=== PATIENT | male | born 1975 | race Caucasian/White ===

== ENCOUNTER 2016-07-31 11:47 | Emergency (ER) ==
[2016-07-31 13:14] LABS: URINE CULTURE NEEDED? NO; URINE MICRO REVIEW NEEDED? NO; URINE SOURCE CLEAN CATCH
[2016-07-31 13:20] LABS: BILIRUBIN URINE NEGATIVE (NEGATIVE); BLOOD URINE NEGATIVE (NEGATIVE); COLOR YELLOW; GLUCOSE URINE >1000 mg/dL (NEGATIVE); LEUKOCYTES URINE NEGATIVE (NEGATIVE); NITRITE URINE NEGATIVE (NEGATIVE); PROTEIN URINE NEGATIVE (NEGATIVE); TURBIDITY URINE CLEAR (CLEAR); UROBILINOGEN URINE NORMAL (NORMAL)
[2016-07-31] MEDS ORDERED: TORADOL IM ONE (13:32)
[2016-07-31] MEDS ORDERED: NORFLEX IM ONE (13:33)
--- NOTE | 2016-07-31 13:38 | PROVIDER DOCUMENTATION ---
HPI-Abdominal Pain/GI Problem - General Source: patient - History of Present Illness-ABD Nature of Presenting Problems: patient is a 41 y/o M that presents to the ER with right flank pain that began 4 days ago abruptly. Pain is sharp in nature. denies injury. Denies hematuria or dysuria. Denies n/v/d. Pain worse with coughing, movement, touch, and breathing ( deep) Abdominal Pain Onset Location: reports: flank (right/right rib) Pain Radiation: reports: no radiation Quality of Pain: reports: sharp Severity in ED: reports: mild, moderate Onset/Duration: reports: abrupt, 4 days ago Timing: reports: still present, constant Activities at Onset: reports: none Modifying Factors: worse with: coughing, lying down, movement Associated Symptoms: reports: back/neck pain. denies: chest pain, diarrhea, dizziness, EENT symptoms, fever/chills, genitourinary problems, nausea, shortness of breath, vomiting Similar Symptoms Previously?: No Recently seen or treated by another doctor?: No <Jh Pizarro - Last Filed: 07/31/16 15:04> <Sergio Valenzuela I - Last Filed: 07/31/16 15:09> - General Chief Complaint: Abdominal Pain Stated Complaint: RIGHT SIDE PAIN Time Seen by Provider: 07/31/16 13:16 Allergies/Adverse Reactions: Patient Allergies Allergy/AdvReac Type Severity Reaction Status Date / Time No Known Allergies Allergy Verified 07/31/16 13:12 Home Medications: Home Medication List Medication Instructions Recorded Confirmed Last Taken Type LISINOpril/HCTZ [Prinzide 1 tab PO QAM 11/04/12 04/05/16 07/30/16 06:00 History 20/12.5MG] 1 tablet Cyclobenzaprine [Flexeril] 10 mg PO TID #20 tablet 07/31/16 Unknown Rx Naproxen Sodium [Anaprox Ds] 550 mg PO BID #20 tablet 07/31/16 Unknown Rx Review of Systems - Adult - REVIEW OF SYSTEMS - ADULT Constitutional: denies: chills, fever Eyes: reports: no symptoms reported Ears, Nose, Mouth & Throat: reports: no symptoms reported Cardiovascular: denies: chest pain, palpitations, syncope Respiratory: reports: pleurisy. denies: cough, shortness of breath Gastrointestinal: reports: abdominal pain. denies: diarrhea, nausea, vomiting Genitourinary: reports: flank pain (right). denies: dysuria, frequency, hematuria, urgency Musculoskeletal: denies: back pain, joint pain, neck pain Integumentary: reports: no symptoms reported Neurological: reports: no symptoms reported Psychiatric: reports: no symptoms reported Endocrine: reports: no symptoms reported Hematologic/Lymphatic: reports: no symptoms reported Allergic/Immunologic: reports: no symptoms reported All Other Systems: Reviewed and Negative <Jh Pizarro - Last Filed: 07/31/16 15:04> Past History - Adult - PAST MEDICAL HISTORY-ADULT Review of Records: reports: Old Records Reviewed, Nursing Assessment Review, Medications Reviewed Cardiovascular: reports: HTN Gastrointestinal: reports: diverticulosis Other 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: MRSA - PRIOR SURGERIES/PROCEDURES Surgical/Procedure History: reports: cholecystectomy - PRIOR HOSPITALIZATIONS Prior Hospitalizations: reports: for other non-related - IMMUNIZATION STATUS Childhood Immunizations: UTD Flu Vaccine: See Nurse Assessment - FAMILY HISTORY Family History: reviewed, not pertinent - SOCIAL HISTORY Smoking: cigarettes, greater than 1 pack/day Living Situation: family <Jh Pizarro - Last Filed: 07/31/16 15:04> Physical Exam-General - PHYSICAL EXAM-ADULT Initial Vital Signs Reviewed: Yes - CONSTITUTIONAL General Appearance: alert, no apparent distress, obese - EYES Eyes: PERRL/EOMI, pink conjunctivae, fundi clear, no AV nicking - HEAD, EARS, NOSE, MOUTH & THROAT HENMT: normocephalic/atraumatic, moist mucous membranes, normal ENT inspection - NECK Neck: non-tender, full range of motion, normal inspection - RESPIRATORY Respiratory: lungs clear, normal breath sounds, no respiratory distress, no accessory muscle use - CARDIOVASCULAR Cardiovascular: regular rate, rhythm, no edema, no murmur - GASTROINTESTINAL (ABDOMEN) Abdominal Exam: normal bowel sounds, soft, no organomegaly, no pulsatile mass, tenderness (Right flank/right rib) - MUSCULOSKELETAL Back Exam: no CVA tenderness, no vertebral tenderness Extremity: normal range of motion, normal inspection - SKIN Integumentary: normal color, warm/dry - NEUROLOGIC Neurologic: grossly normal, no motor/sensory deficits - PSYCHIATRIC Psych/Mental Status: normal mood/affect, normal thought content, normal thought process, oriented x 3 <Jh Pizarro - Last Filed: 07/31/16 15:04> Progress - PLAN OF CARE/RESULTS Progress/Plan/Lab Results: plan of care-xray, ct rss, meds Vital Signs Temp Pulse Resp BP Pulse Ox 07/31/16 12:01 98.2 F 95 H 16 155/94 98 No Known Allergies Allergy (Verified 07/31/16 13:12) LISINOpril/HCTZ [Prinzide 20/12.5MG] 1 tab PO QAM 11/04/12 I&O 07/30/16 07/31/16 08/01/16 06:59 06:59 06:59 Output Total 30 Balance -30 Laboratory 07/31/16 13:06 Urine Source CLEAN CATCH Urine Color YELLOW Urine Turbidity CLEAR Urine pH 5.0 Ur Specific [place] 1.012 Urine Protein NEGATIVE Ur Glucose (Stick) >1000 A Ur Ketones (Stick) NEGATIVE Urine Blood NEGATIVE Urine Nitrite NEGATIVE Urine Bilirubin NEGATIVE Urobilinogen Dipstick NORMAL Urine Leukocytes NEGATIVE Urine WBC (Auto) <10 Urine RBC (Auto) <10 U Epithel Cells (Auto) <10 Urine Bacteria (Auto) NEGATIVE Orders Category Date Time Status RENAL STONE SEARCH [CT] Stat Exams 07/31/16 13:32 Completed RIBS UNILAT W/PA CHEST RIGHT [RAD] Stat Exams 07/31/16 13:31 Draft UA NIMS W/REFLEX CULT [URINALYSIS] Stat Lab 07/31/16 13:06 Completed Ketorolac [Toradol] Med 07/31/16 13:32 Discontinued 60 mg IM NOW ONE Orphenadrine [Norflex] Med 07/31/16 13:33 Discontinued 60 mg IM NOW ONE pt will be d/c home f/u with pcp, rx given, pt understood results and instructions. - CT/MRI 1 CT Study: Renal Stone Impression: Abnormal CT Results: No RS or hydro, No FACUNDO, Nml genie, Diveticulosis <Jh Pizarro - Last Filed: 07/31/16 15:04> Departure - Departure Time of Disposition Order: 15:04 Certified Medical Emergency: Emergent <Jh Pizarro - Last Filed: 07/31/16 15:04> - Departure Time of Disposition Order: 15:08 Certified Medical Emergency: Emergent <Sergio Valenzuela I - Last Filed: 07/31/16 15:09> - Departure DIAGNOSIS: Muscle strain Disposition: HOME 01 Condition: Stable Additional Instructions: ED Follow Up Instructions: You have been treated by a care provider in the Emergency Department. These instructions are being provided to you so you can have an understanding of how to care for yourself upon discharge. Upon discharge from the Emergency Department, you are responsible for making arrangements for follow-up care by a physician of your choice. Take all prescribed medications as directed. Return to the Emergency Department immediately for any new or worsening symptoms. You may call the Physician Referral phone number at [phone] to obtain a list of Physicians who are taking new patients. Prescriptions: Naproxen Sodium [Anaprox Ds] 550 mg PO BID #20 tablet Cyclobenzaprine [Flexeril] 10 mg PO TID #20 tablet Referrals: Pepe Malik MD [Primary Care Provider] - Call for Appoint. 1-2days Instructions: Muscle Strain, [id number] Attestation - Scribe Verification/Attestation Scribe:: Jh Pizarro Acting as Scribe for:: Sergio Valenzuela Scribe documention review:: This chart was documented by a scribe and accurately reflects the service the provider performed and the decisions made by the provider. <Jh Pizarro - Last Filed: 07/31/16 15:04> Physician Attestation - Physician Attestation I, the provider, attest to the following statement:: Sergio Valenzuela Physician documentation Attestation:: This documentation recorded by the scribe accurately reflects the service I personally performed and the decisions made by me. <Jh Pizarro - Last Filed: 07/31/16 15:04> - Physician Attestation I, the provider, attest to the following statement:: Sergio Valenzuela Physician documentation Attestation:: This documentation recorded by the scribe accurately reflects the service I personally performed and the decisions made by me. <Sergio Valenzuela I - Last Filed: 07/31/16 15:09>
[2016-07-31 13:56] LABS: SP GRAVITY URINE 1.012; UR EPITHELIAL CELLS <10 /HPF (<10); URINE BACTERIA NEGATIVE /HPF; URINE RBC <10 /HPF (<10); URINE WBC <10 /HPF (<10)
--- NOTE | 2016-07-31 14:30 | Diag Imaging Result Document ---
PROCEDURE NAME: RIBS UNILAT W/PA CHEST RIGHT - 07/31/2016 FRONTAL CHEST X-RAY AND 4 VIEWS OF THE RIGHT-SIDED RIBS: COMPARISON: 02/02/2016. FINDINGS: The lungs are clear and the heart size is normal. There is probably questionable deformity of a couple of right-sided ribs, ribs #6 and #9. These appear most likely to be chronic. No definite acute fracture. IMPRESSION: No acute disease.
--- NOTE | 2016-07-31 14:30 | Diag Imaging Result Document ---
PROCEDURE NAME: RENAL STONE SEARCH - 07/31/2016 CT ABDOMEN AND PELVIS WITHOUT ORAL OR INTRAVENOUS CONTRAST. DOSE REDUCTION PROTOCOL. COMPARISON: 09/29/2015. FINDINGS: The gallbladder has been removed. No focal hepatic abnormality identified on this noncontrasted exam. Normal spleen and adrenal glands. No inflammation about the pancreas. No renal stones. No hydronephrosis. Normal aorta. No bowel obstruction. Normal appendix. No abscess. There are scattered diverticula. No adjacent inflammation. The urinary bladder is distended and appears normal. The prostate is not enlarged. There are small iliac lymph nodes. No compressed lumbar vertebra. There are degenerative changes throughout the lumbar spine. IMPRESSION: 1. No renal stones or hydronephrosis. 2. Cholecystectomy. 3. Diverticulosis, but no diverticulitis. 4. Normal appendix. No abscess. 5. Cholecystectomy. A preliminary report was given at 2:11 p.m..
[2016-07-31 15:27] VITALS: BP 186/81
== END 2016-07-31 15:27 | disposition home or self-care (01) ==
LOC: ED 11:47
DX: S39.011A Strain of muscle, fascia and tendon of abdomen, initial encounter (principal); R10.9 Unspecified abdominal pain; I10 Essential (primary) hypertension; R09.1 Pleurisy; R07.81 Pleurodynia; Z86.14 Personal history of Methicillin resistant Staphylococcus aureus infection; F17.210 Nicotine dependence, cigarettes, uncomplicated; E66.9 Obesity, unspecified; Z79.899 Other long term (current) drug therapy
CPT/HCPCS: 71101; 74176; 81001; J1885; J2360

== ENCOUNTER 2016-08-08 09:30 | Emergency (ER) ==
[2016-08-08 09:50] VITALS: BP 157/78
[2016-08-08] MEDS ORDERED: DUONEB (A & A) INH ONE (10:32)
--- NOTE | 2016-08-08 10:44 | Diag Imaging Result Document ---
PROCEDURE NAME: CHEST-2 VIEWS - 08/08/2016 FRONTAL AND LATERAL CHEST, TWO VIEWS: COMPARISON: 07/31/2016. FINDINGS: The lungs are well expanded. The heart is not enlarged. The vessels are not distended. There are no infiltrates. No pleural effusions. IMPRESSION: No pneumonia or congestive failure.
--- NOTE | 2016-08-08 11:02 | PROVIDER DOCUMENTATION ---
HPI-General Adult - General Source: patient - History of Present Illness -Gen Adult Nature of Presenting Problems: Reports to er with cc of luq pain and cough x 2 weeks. Reports cough is yellow and productive with sorethroat. Seen at [facility] 7 days ago given naproxen and flexerill. Reports pain started two weeks ago when he quit smoking. States is having night sweats. Denies n,v,f,d,constipation. Location of Pain/Injury: reports: abdomen Quality of Pain: reports: aching Severity: reports: moderate Onset/Duration: reports: other (2weeks) Timing: reports: still present Similar Symptoms Previously?: Yes Recently seen or treated by another doctor?: Yes <Sada Garrison - Last Filed: 08/08/16 11:02> <Dora Amador - Last Filed: 08/08/16 12:30> - General Chief Complaint: Cold Symptoms Stated Complaint: COUGH/CONGESTION Time Seen by Provider: 08/08/16 10:10 Allergies/Adverse Reactions: Patient Allergies Allergy/AdvReac Type Severity Reaction Status Date / Time No Known Allergies Allergy Verified 08/08/16 10:21 Home Medications: Home Medication List Medication Instructions Recorded Confirmed Last Taken Type LISINOpril/HCTZ [Prinzide 1 tab PO QAM 11/04/12 08/08/16 08/08/16 06:00 History 20/12.5MG] Albuterol Sulfate Inhaler 2 puff INH Q6H PRN PRN #1 inhaler 08/08/16 Unknown Rx [Ventolin Hfa] Amoxicillin [Amoxil] 875 mg PO BID #14 tablet 08/08/16 Unknown Rx Chlorpheniramine/Dextromethorp 1 each PO Q6H PRN PRN #30 tablet 08/08/16 Unknown Rx [Coricidin Hbp Cough & Cold Tab] Prednisone 20 mg PO DAILY #12 tablet 08/08/16 Unknown Rx Review of Systems - Adult - REVIEW OF SYSTEMS - ADULT Constitutional: reports: night sweats. denies: chills, fever, fatique Eyes: reports: no symptoms reported Ears, Nose, Mouth & Throat: reports: throat pain. denies: ear pain, sinus problem Cardiovascular: denies: chest pain, irregular heart rate, orthopnea, syncope Respiratory: reports: cough. denies: shortness of breath, wheezing Gastrointestinal: reports: abdominal pain. denies: diarrhea, nausea, vomiting Genitourinary: reports: no symptoms reported Musculoskeletal: reports: no symptoms reported Integumentary: reports: no symptoms reported Neurological: reports: no symptoms reported Psychiatric: reports: no symptoms reported Endocrine: reports: no symptoms reported Hematologic/Lymphatic: reports: no symptoms reported Allergic/Immunologic: reports: no symptoms reported All Other Systems: Reviewed and Negative <Sada Garrison - Last Filed: 08/08/16 11:02> Past History - Adult - PAST MEDICAL HISTORY-ADULT Review of Records: reports: Nursing Assessment Review, Medications Reviewed Major Childhood Illnesses: reports: denies history Cardiovascular: reports: HTN Gastrointestinal: reports: diverticulosis Other 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: MRSA - PRIOR SURGERIES/PROCEDURES Surgical/Procedure History: reports: cholecystectomy - PRIOR HOSPITALIZATIONS Prior Hospitalizations: reports: for other non-related - IMMUNIZATION STATUS Childhood Immunizations: UTD Flu Vaccine: See Nurse Assessment - FAMILY HISTORY Family History: reviewed, not pertinent - SOCIAL HISTORY Smoking: denies Substance Use: none/never <Sada Garrison - Last Filed: 08/08/16 11:02> Physical Exam-General - PHYSICAL EXAM-ADULT Initial Vital Signs Reviewed: Yes - CONSTITUTIONAL General Appearance: appears well, alert, no apparent distress - EYES Eyes: PERRL/EOMI - HEAD, EARS, NOSE, MOUTH & THROAT HENMT: normal ENT inspection, TMs normal, pharynx normal, maxillary tenderness - NECK Neck: non-tender, full range of motion, supple, normal inspection - RESPIRATORY Respiratory: chest non-tender, normal breath sounds, no pleuratic chest pain, no respiratory distress, no accessory muscle use, wheezing (diffuse all jenkins) - CARDIOVASCULAR Cardiovascular: regular rate, rhythm - GASTROINTESTINAL (ABDOMEN) Abdominal Exam: no organomegaly, no pulsatile mass, abnormal bowel sounds ( decreased bs), other (hard luq ttp) - MUSCULOSKELETAL Back Exam: normal inspection, no CVA tenderness, no vertebral tenderness Extremity: normal range of motion, non-tender - SKIN Integumentary: normal color, normal turgor, warm/dry - PSYCHIATRIC Psych/Mental Status: normal mood/affect, normal thought content, normal thought process, oriented x 3 <Sada Garrison - Last Filed: 08/08/16 11:02> Progress - PLAN OF CARE/RESULTS Progress/Plan/Lab Results: Orders Category Date Time Status Saline Loc DIRECTED Care 08/08/16 10:32 Active NPO Diet 08/08/16 10:32 Active CHEST-2 VIEWS [RAD] Stat Exams 08/08/16 09:51 Draft AMYLASE [CHEM] Stat Lab 08/08/16 10:54 Ordered CBC WITH ELECTRONIC DIFF [HEME] Stat Lab 08/08/16 10:54 Ordered COMPREHENSIVE METABOLIC PANEL [CHEM] Stat Lab 08/08/16 10:54 Ordered LIPASE [CHEM] Stat Lab 08/08/16 10:54 Ordered URINALYSIS W/POSS RFLX CULT [URINALYSIS] Stat Lab 08/08/16 10:32 Uncollected Albuterol 2.5MG/Ipratrop 0.5MG [Duoneb (A & A)] Med 08/08/16 10:32 Discontinued 6 ml INH NOW ONE Aerosol Treatments Routine Oth 08/08/16 10:32 Active Aerosol Treatments Stat Oth 08/08/16 10:32 Active Vital Signs - 24 hr 08/08/16 09:48 Temperature 98.3 F Pulse Rate 89 Respiratory 18 Rate Blood Pressure 157/78 O2 Sat by Pulse 99 Oximetry <Sada Garrison - Last Filed: 08/08/16 11:02> - PLAN OF CARE/RESULTS Progress/Plan/Lab Results: Laboratory Tests 08/08/16 08/08/16 10:52 10:52 WBC 8.85 RBC 4.82 Hgb 15.8 Hct 46.1 MCV 95.6 MCH 32.8 H MCHC 34.3 RDW Std Deviation 12.6 Plt Count 322 MPV 9.8 Immature Gran % (Auto) 0.3 Neut % (Auto) 59.0 Lymph % (Auto) 25.1 Johnston % (Auto) 12.0 H Eos % (Auto) 3.4 Baso % (Auto) 0.2 Immature Gran # (Auto) 0.03 Neut # (Auto) 5.22 Lymph # (Auto) 2.22 Johnston # (Auto) 1.06 H Eos # (Auto) 0.30 Baso # (Auto) 0.02 Sodium 141 Potassium 3.9 Chloride 101 Carbon Dioxide 28 Anion Gap 12 BUN 11 Creatinine 0.8 Estimated GFR/1.73 m2 > 60 BUN/Creatinine Ratio 14 Glucose 108 H Calculated Osmolality 281 Calcium 9.2 Total Bilirubin 0.39 AST 25 ALT 30 Alkaline Phosphatase 94 Total Protein 6.8 Albumin 4.0 Globulin 2.8 Albumin/Globulin Ratio 1.4 Amylase 37 Lipase 27 Vital Signs Temp Pulse Resp BP Pulse Ox 08/08/16 11:11 78 14 97 08/08/16 09:48 98.3 F 89 18 157/78 99 No Known Allergies Allergy (Verified 08/08/16 10:21) LISINOpril/HCTZ [Prinzide 20/12.5MG] 1 tab PO QAM 11/04/12 Albuterol Sulfate Inhaler [Ventolin Hfa] 2 puff INH Q6H PRN PRN #1 inhaler 08/08 Amoxicillin [Amoxil] 875 mg PO BID #14 tablet 08/08/16 Chlorpheniramine/Dextromethorp [Coricidin Hbp Cough & Cold Tab] 1 each PO Q6H PRN PRN #30 tablet 08/08/16 Prednisone 20 mg PO DAILY #12 tablet 08/08/16 Dietary Diet NPO Start SunAug 08 103 Laboratory 08/08/16 08/08/16 10:52 10:52 WBC 8.85 RBC 4.82 Hgb 15.8 Hct 46.1 MCV 95.6 MCH 32.8 H MCHC 34.3 RDW Std Deviation 12.6 Plt Count 322 MPV 9.8 Immature Gran % (Auto) 0.3 Neut % (Auto) 59.0 Lymph % (Auto) 25.1 Johnston % (Auto) 12.0 H Eos % (Auto) 3.4 Baso % (Auto) 0.2 Immature Gran # (Auto) 0.03 Neut # (Auto) 5.22 Lymph # (Auto) 2.22 Johnston # (Auto) 1.06 H Eos # (Auto) 0.30 Baso # (Auto) 0.02 Sodium 141 Potassium 3.9 Chloride 101 Carbon Dioxide 28 Anion Gap 12 BUN 11 Creatinine 0.8 Estimated GFR/1.73 m2 > 60 BUN/Creatinine Ratio 14 Glucose 108 H Calculated Osmolality 281 Calcium 9.2 Total Bilirubin 0.39 AST 25 ALT 30 Alkaline Phosphatase 94 Total Protein 6.8 Albumin 4.0 Globulin 2.8 Albumin/Globulin Ratio 1.4 Amylase 37 Lipase 27 Orders Category Date Time Status Saline Loc DIRECTED Care 08/08/16 10:32 Active NPO Diet 08/08/16 10:32 Active CHEST-2 VIEWS [RAD] Stat Exams 08/08/16 09:51 Completed AMYLASE [CHEM] Stat Lab 08/08/16 10:52 Completed CBC WITH ELECTRONIC DIFF [HEME] Stat Lab 08/08/16 10:52 Completed COMPREHENSIVE METABOLIC PANEL [CHEM] Stat Lab 08/08/16 10:52 Completed LIPASE [CHEM] Stat Lab 08/08/16 10:52 Completed URINALYSIS W/POSS RFLX CULT [URINALYSIS] Stat Lab 08/08/16 10:32 Cancelled 0.9% Sodium Chloride Inj [Ns] 1,000 ml Med 08/08/16 11:11 Discontinued IV 999 mls/hr 0.9% Sodium Chloride Inj [Ns] 1,000 ml Med 08/08/16 11:54 Active IV 999 mls/hr Albuterol 2.5MG/Ipratrop 0.5MG [Duoneb (A & A)] Med 08/08/16 10:32 Discontinued 6 ml INH NOW ONE CefTRIAXONE 1 GM/NS [Rocephin 1 gm/Ns] 50 ml Med 08/08/16 11:47 Discontinued IV NOW Aerosol Treatments Routine Oth 08/08/16 10:32 Completed Aerosol Treatments Stat Oth 08/08/16 10:32 Completed Discussed pt with Dr. Han; she agreed with tx and d/c. Discussed d/c plan with pt. - REASSESSMENT Reassessment #1 Time Reassessed: 12:15 Status: improving Reassessment Comment: Pt declined Xray due to no pain and wants to go home; feeling better - XRAY 1 XRAY Study: Chest Impression: See EMR Report (No PNA or CHF. -per Dr. Rodriguez) <Dora Amador - Last Filed: 08/08/16 12:30> Departure <Sada Garrison - Last Filed: 08/08/16 11:02> - Departure Time of Disposition Order: 12:26 Certified Medical Emergency: Emergent <Dora Amador - Last Filed: 08/08/16 12:30> - Departure DIAGNOSIS: Bronchitis Abdominal pain Qualifiers: Abdominal location: left upper quadrant Qualified Code(s): R10.12 - Left upper quadrant pain Disposition: HOME 01 Condition: Stable Additional Instructions: Take medications as directed. Follow up with PCP if symptoms get worse. Drink plenty of fluids. ED Follow Up Instructions: You have been treated by a care provider in the Emergency Department. These instructions are being provided to you so you can have an understanding of how to care for yourself upon discharge. Upon discharge from the Emergency Department, you are responsible for making arrangements for follow-up care by a physician of your choice. Take all prescribed medications as directed. Return to the Emergency Department immediately for any new or worsening symptoms. You may call the Physician Referral phone number at [phone] to obtain a list of Physicians who are taking new patients. Prescriptions: Amoxicillin [Amoxil] 875 mg PO BID #14 tablet Chlorpheniramine/Dextromethorp [Coricidin Hbp Cough & Cold Tab] 1 each PO Q6H PRN PRN #30 tablet PRN Reason: Cough Prednisone 20 mg PO DAILY #12 tablet Albuterol Sulfate Inhaler [Ventolin Hfa] 2 puff INH Q6H PRN PRN #1 inhaler PRN Reason: Shortness Of Breath Referrals: Pepe Malik MD [Primary Care Provider] - Attestation - Scribe Verification/Attestation Scribe:: Sada Garrison Acting as Scribe for:: Dora Amador Scribe documention review:: This chart was documented by a scribe and accurately reflects the service the provider performed and the decisions made by the provider. <Sada Garrison - Last Filed: 08/08/16 11:02> Physician Attestation
[2016-08-08 11:07] LABS: MANUAL DIFF NEEDED? NO
[2016-08-08 11:11] LABS: BASO% 0.2 % (0.0-0.8); EOS% 3.4 % (0.0-10.0); HEMATOCRIT 46.1 % (42.0-52.0); HEMOGLOBIN 15.8 g/dL (14.0-18.0); IMM GRAN# 0.03 X1000 (0.0-0.04); IMM GRAN% 0.3 % (0.0-0.5); LYMPH# 2.22 X1000 (1.2-3.4); LYMPH% 25.1 % (20.5-51.1); MCH 32.8 PG (27-31); MCHC 34.3 g/dL (33-37); MCV 95.6 FL (81-99); MONO# 1.06 X1000 (0.11-0.59); MPV 9.8 FL (7.4-10.4); PLT 322 X1000 (130-400); RBC 4.82 XMIL (4.7-6.1)
[2016-08-08] MEDS ORDERED: NS 1,000 ML IV ONE ×2 (11:11→11:54)
[2016-08-08 11:31] LABS: AGAP 12; ALKALINE PHOSPHATASE 94 U/L (32-122); AMYLASE 37 U/L (20-200); BUN 11 mg/dL (8-22); CALCIUM 9.2 mg/dL (8.8-10.2); CHLORIDE 101 mmol/L (98-107); COSMO 281; GOT 25 U/L (10-34); GPT 30 U/L (10-44); LIPASE 27 U/L (13-60); POTASSIUM 3.9 mmol/L (3.5-5.1); SODIUM 141 mmol/L (136-145); TCO2 28 mmol/L (25-35); TOTAL BILIRUBIN 0.39 mg/dL (0.20-1.00); TOTAL PROTEIN 6.8 g/dL (6.3-8.3)
[2016-08-08] MEDS ORDERED: ROCEPHIN 1 GM/NS 50 ML IV ONE (11:47)
== END 2016-08-08 12:48 | disposition home or self-care (01) ==
LOC: ED 09:30
DX: J40 Bronchitis, not specified as acute or chronic (principal); R10.12 Left upper quadrant pain; R05 Cough; R61 Generalized hyperhidrosis; R07.0 Pain in throat; I10 Essential (primary) hypertension; Z86.14 Personal history of Methicillin resistant Staphylococcus aureus infection; R06.2 Wheezing; Z79.899 Other long term (current) drug therapy
CPT/HCPCS: 71020; 80053; 82150; 83690; 85025; 94640; J0696; J7030